=== PATIENT | male | born 1985 | race Caucasian/White ===

== ENCOUNTER 2021-09-20 13:24 | Emergency (ER) | payer SELFPAY ==
[2021-09-20 14:42] LABS: BASO # 0.1 10*3/uL (0.0-0.1); BASO % 0.4 % (0.0-1.0); EOS # 0.5 10*3/uL (0.0-0.4); EOS % 4.3 % (1.0-4.0); HEMATOCRIT 46.7 % (42.0-52.0); LYMPH # 2.5 10*3/uL (1.3-4.4); LYMPH % 21.2 % (27.0-41.0); MEAN CELL VOLUME 89.8 fl (80.0-94.0); MEAN CORPUSCULAR HGB 29.8 pg (27.0-31.0); MEAN CORPUSCULAR HGB CONC 33.2 g/dl (33.0-37.0); MEAN PLATELET VOLUME 10.6 fl (9.6-12.3); MONO # 1.1 10*3/uL (0.1-1.0); MONO % 9.6 % (3.0-9.0); NEUT # 7.4 10*3/uL (2.3-7.9); NEUT % 64.1 % (47.0-73.0); PLATELET COUNT AUTOMATED 261 10*3/uL (130-400); RED CELL DISTRI WIDTH 12.5 % (0-14.5); WHITE BLOOD COUNT 11.6 10*3/uL (4.8-10.8)
[2021-09-20 14:58] LABS: ACT PARTIAL THROMBO TIME 27.6 SECONDS (20.0-32.1); INTERNATIONAL NORM RATIO 0.9 (2.0-3.5)
[2021-09-20 15:13] LABS: ALBUMIN 4.1 gm/dl (3.1-4.5); ALKALINE PHOSPHATASE 78 U/L (45-117); BUN 15 mg/dl (7-24); CHLORIDE 104 mmol/L (98-107); CREATININE 1.01 mg/dL (0.70-1.30); POTASSIUM 4.3 mmol/L (3.5-5.1); SGOT/AST 8 IU/L (3-35); SGPT/ALT 22 U/L (12-78); SODIUM 135 mmol/L (136-145); TOTAL PROTEIN 8.9 gm/dL (6.4-8.2)
[2021-09-20 15:17] LABS: TROPONIN I < 0.015 ng/ml (<0.045)
[2021-09-20] MEDS ORDERED: DEXAMETHASONE6 MG PO (16:56)
[2021-09-20] MEDS ORDERED: PROVENTIL HFA6.7 GM INH (16:56)
== END 2021-09-20 17:09 | disposition home or self-care (01) ==
LOC: ED 13:24
PROVIDERS: Emergency Medicine
DX: J45.901 Unspecified asthma with (acute) exacerbation (principal); Z20.822 Contact with and (suspected) exposure to COVID-19; F17.200 Nicotine dependence, unspecified, uncomplicated